=== PATIENT | female | born 1950 | race Hispanic/Latino ===

== ENCOUNTER 2019-01-02 07:54 | Emergency (ER) | payer BC ==
[~2019-01-02 07:54] MED LIST: AEC81 PO; BENA40TA9 PO; CARV12.511 PO; DAPA10TA PO; GABA-529 PO; HYDR25TA PO; LIRA0.6P2 SQ; METF-444 PO; Nitroglycerin SL; SIMV20TA6 PO
[2019-01-02] MEDS ORDERED: KETOROLAC TROMETHAMINE 60 MG/2 ML VIAL ONE (08:21)
[2019-01-02] MEDS ORDERED: ONDANSETRON ODT 4 MG TAB ONE (08:22)
[2019-01-02] MEDS ORDERED: TRAMADOL HCL 50 MG TABLET ONE (08:22)
== END 2019-01-02 08:44 | disposition home or self-care (01) ==
LOC: EDH 07:54
DX: M54.5 Low back pain (principal); I10 Essential (primary) hypertension; E11.9 Type 2 diabetes mellitus without complications; I25.10 Atherosclerotic heart disease of native coronary artery without angina pectoris; Z88.6 Allergy status to analgesic agent
CPT/HCPCS: 96372; 99284; J1885

== ENCOUNTER → 2019-04-06 | Outpatient (CLI) | payer BC | END | disposition home or self-care (01) | LOC: RAH 10:53 | PROVIDERS: ATTEND Internal Medicine | DX: Z12.31 Encounter for screening mammogram for malignant neoplasm of breast (principal) | CPT/HCPCS: 77067 ==

== ENCOUNTER → 2019-04-26 | Outpatient (CLI) | payer BC | END | disposition home or self-care (01) | LOC: RAH 12:36 | PROVIDERS: ATTEND Internal Medicine | DX: N63.11 Unspecified lump in the right breast, upper outer quadrant (principal); N63.20 Unspecified lump in the left breast, unspecified quadrant | CPT/HCPCS: 76641; 77066 ==

== ENCOUNTER → 2019-05-25 | Outpatient (CLI) | payer BC ==
[2019-05-25 09:04] LABS: INR 1.03 (0.85-1.15); PARTIAL THROMBOPLASTIN TIME 27.6 SEC (26.3-35.5); PROTHROMBIN TIME 10.8 SEC (9.6-11.6)
--- NOTE | 2019-05-25 09:30 | NUR ---
U/S GD BX BILATERAL BREAST LUMPS PROCEDURE PERFORMED BY DR NOEL. PUNCTURE SITE RIGHT BREAST 12 OCLOCK AND PATIENT TOLERATED PROCEDURE WELL. SPECIMEN X 3 COLLECTED AND SENT TO LAB. PUNCTURE SITE LEFT SUBAREOLAR AREA. PATIENT TOLERATED WELL. SPECIMENS X 3 COLLECTED ANS SENT TO LAB. END OF PROCEDURE AT 1010. BIOPSY NEEDLE REMOVED AND DRESSING APPLIED. NO BLEEDING NOTED. DISCHARGE INSTRUCTIONS GIVEN TO PATIENT AND VERBALIZED UNDERSTANDING. DISCHARGED AMBULATORY, STABLE, AAO X3 WITH NO C/O PAIN.
== END ==
LOC: RAH 08:17
PROVIDERS: ATTEND Internal Medicine
DX: C50.811 Malignant neoplasm of overlapping sites of right female breast (principal); C50.812 Malignant neoplasm of overlapping sites of left female breast; N18.1 Chronic kidney disease, stage 1; I13.10 Hypertensive heart and chronic kidney disease without heart failure, with stage 1 through stage 4 chronic kidney disease, or unspecified chronic kidney disease; M81.0 Age-related osteoporosis without current pathological fracture; E78.2 Mixed hyperlipidemia; E11.51 Type 2 diabetes mellitus with diabetic peripheral angiopathy without gangrene; E11.22 Type 2 diabetes mellitus with diabetic chronic kidney disease; I48.0 Paroxysmal atrial fibrillation; I25.10 Atherosclerotic heart disease of native coronary artery without angina pectoris; F32.9 Major depressive disorder, single episode, unspecified; F41.9 Anxiety disorder, unspecified; Z88.5 Allergy status to narcotic agent; Z88.8 Allergy status to other drugs, medicaments and biological substances; Z79.84 Long term (current) use of oral hypoglycemic drugs; Z79.899 Other long term (current) drug therapy; Z98.890 Other specified postprocedural states; Z95.818 Presence of other cardiac implants and grafts; Z90.49 Acquired absence of other specified parts of digestive tract; Z90.710 Acquired absence of both cervix and uterus; Z82.49 Family history of ischemic heart disease and other diseases of the circulatory system; Z83.3 Family history of diabetes mellitus
CPT/HCPCS: 19083; 19084; 36415; 85610; 85730; 88305; A4215 ×3; 76942

== ENCOUNTER → 2019-08-01 | Outpatient (CLI) | payer BC ==
[~2019-08-01] MED LIST changes: +ATOR40TA69 PO; +FOLIC ACID PO
== END | disposition home or self-care (01) ==
LOC: RAH 08:42
PROVIDERS: ATTEND Internal Medicine Medical Oncology
DX: Z51.11 Encounter for antineoplastic chemotherapy (principal); I51.7 Cardiomegaly
CPT/HCPCS: 93306

== ENCOUNTER 2019-08-03 08:20 | Day surgery (SDC) | payer BC ==
[2019-08-01 09:45] VITALS: BP 161/70
[2019-08-01 10:41] LABS: HEMATOCRIT 44.6 % (36-48); MEAN CORPUSCULAR HEMOGLOBIN 33.7 pg (27.0-33.0); MEAN CORPUSCULAR HGB CONC 34.1 g/dL (32.0-36.0); MEAN CORPUSCULAR VOLUME 98.9 fL (79-99); PLATELET COUNT (AUTO) 83 K/uL (130-400); RED BLOOD CELL COUNT(AUTO) 4.51 MIL/uL (4.00-5.50); RED CELL DISTRIBUTION WIDTH 14.1 % (11.0-15.5)
[2019-08-01 10:50] LABS: INR 1.06 (0.85-1.15); PARTIAL THROMBOPLASTIN TIME 26.9 SEC (26.3-35.5); PROTHROMBIN TIME 11.1 SEC (9.6-11.6)
[2019-08-01 10:56] LABS: CREATININE 0.8 mg/dL (0.5-1.5); POTASSIUM 4.2 mmol/L (3.5-5.1)
[2019-08-01 10:59] LABS: BAND NEUTROPHILS % (MANUAL) 1 % (0-2); BASOPHILS % (MANUAL) 3 % (0-2); EOSINOPHILS % (MANUAL) 2 % (1-6); LYMPHOCYTES % (MANUAL) 51 % (22-44); MAN.DIFF COMMENT-IMPRESSION MANUAL DIFFERENTIAL; MONOCYTES % (MANUAL) 5 % (2-9); PLATELET MORPHOLOGY COMMENT DECREASED; SEGMENTED NEUTROPHILS % 38 % (40-70)
--- NOTE | 2019-08-02 15:40 | NUR ---
CALLED DOCTOR JIA SANTAMARIA OFFICE TO REPORT PLT OF 83, SPOKE TO ROCIO YAÑEZ RN AND SHE ASKED TO FAXED LABS OVERS, SENT OVER CBC AND BMP , PER JUAN YAÑEZ RN NO NEW ORDERS PER MD OKAY TO PROCEED.
[~2019-08-03] VITALS: Ht 157.5 cm; Wt 95.3 kg
[~2019-08-03 08:20] MED LIST changes: -ATOR40TA69 PO; -FOLIC ACID PO
[2019-08-03 08:40] VITALS: BP 157/69
[2019-08-03] MEDS ORDERED: ATOR40TA69 PO (09:18)
[2019-08-03] MEDS ORDERED: FOLIC ACID PO (09:18)
[2019-08-03] MEDS ORDERED: SODIUM CHLORIDE 0.9% 1000ML 1,000 ML IV ONE (09:27)
[2019-08-03] MEDS ORDERED: LIDOCAINE HCL 1% MDV 50ML VIAL ONE (09:31)
[2019-08-03] MEDS ORDERED: SODIUM BICARB 50MEQ 50ML VIAL ONE (09:31)
[2019-08-03] MEDS ORDERED: ONDANSETRON HCL 4 MG/2 ML VIAL ONE (09:43)
[2019-08-03] MEDS ORDERED: MEPERIDINE-PF 25 MG/ML SYG ONE (09:43)
[2019-08-03] MEDS ORDERED: MIDAZOLAM HCL 1 MG/ML 2ML VIAL ONE (09:43)
[2019-08-03] MEDS ORDERED: LIDOCAINE 1%-EPI 1:100,000 20 ML VIAL IJ ONE (09:51)
[2019-08-03] MEDS ORDERED: OCTYL 2-CYANOACRYLATE 1 EACH TP ONE (10:30)
[2019-08-03 11:25] VITALS: BP 126/46
[2019-08-03 11:40] VITALS: BP 126/46
[2019-08-03 11:55] VITALS: BP 115/48
[2019-08-03 12:10] VITALS: BP 123/57
[2019-08-03 12:25] VITALS: BP 126/67
== END 2019-08-03 12:35 | disposition home or self-care (01) ==
LOC: DAH 08:20
PROVIDERS: ATTEND Internal Medicine Medical Oncology
DX: C50.919 Malignant neoplasm of unspecified site of unspecified female breast (principal); I48.91 Unspecified atrial fibrillation; I25.10 Atherosclerotic heart disease of native coronary artery without angina pectoris; I10 Essential (primary) hypertension; E78.5 Hyperlipidemia, unspecified; F41.9 Anxiety disorder, unspecified; E66.9 Obesity, unspecified; E11.40 Type 2 diabetes mellitus with diabetic neuropathy, unspecified; F32.9 Major depressive disorder, single episode, unspecified; Z88.5 Allergy status to narcotic agent; Z88.8 Allergy status to other drugs, medicaments and biological substances; Z90.710 Acquired absence of both cervix and uterus; Z68.38 Body mass index [BMI] 38.0-38.9, adult; Z90.49 Acquired absence of other specified parts of digestive tract; Z98.890 Other specified postprocedural states; Z79.82 Long term (current) use of aspirin; Z79.899 Other long term (current) drug therapy; Z79.84 Long term (current) use of oral hypoglycemic drugs; Z80.49 Family history of malignant neoplasm of other genital organs; Z82.49 Family history of ischemic heart disease and other diseases of the circulatory system; Z83.3 Family history of diabetes mellitus
CPT/HCPCS: 36415; 36561; 77001; 80048; 82948; 85025; 85610; 85730; A4215; A4221; A4222; A4223; A4606; A4663; C1788; C1894; J1644 ×2; J2175; J2250; J2405; J3490 ×2; J7030; 99156; 99157

== ENCOUNTER 2019-08-20 13:37 | Emergency (ER) | payer BC, MEDICARE ==
[~2019-08-20 13:37] MED LIST changes: +ATOR40TA69 PO; -DAPA10TA PO; +FOLIC ACID PO; -GABA-529 PO; -LIRA0.6P2 SQ; -Nitroglycerin SL; -SIMV20TA6 PO
[2019-08-20] MEDS ORDERED: SODIUM CHLORIDE 0.9% 1000ML 1,000 ML IV ONE (14:08)
[2019-08-20 14:14] LABS: EOSINOPHILS % (AUTO) 0.5 % (0.0-8.0); HEMATOCRIT 44.1 % (36-48); LYMPHOCYTES % (AUTO) 24.1 % (21.0-51.0); MEAN CORPUSCULAR HEMOGLOBIN 33.8 pg (27.0-33.0); MEAN CORPUSCULAR HGB CONC 34.7 g/dL (32.0-36.0); MEAN CORPUSCULAR VOLUME 97.4 fL (79-99); MONOCYTES % (AUTO) 0.5 % (3.0-13.0); NEUTROPHILS % (AUTO) 73.9 % (40.0-77.0); NUCLEATED RED BLOOD CELLS 0.1 % (0.0-0.19); PLATELET COUNT (AUTO) 66 K/uL (130-400); RED BLOOD CELL COUNT(AUTO) 4.53 MIL/uL (4.00-5.50); RED CELL DISTRIBUTION WIDTH 12.9 % (11.0-15.5); WHITE BLOOD COUNT (AUTO) 12.4 K/uL (4.8-10.8)
[2019-08-20 14:30] LABS: INR 1.08 (0.85-1.15); PARTIAL THROMBOPLASTIN TIME 25.7 SEC (26.3-35.5); PROTHROMBIN TIME 11.3 SEC (9.6-11.6)
[2019-08-20 14:31] LABS: CARBON DIOXIDE 27 mmol/L (21-32); CHLORIDE 102 mmol/L (101-111); CREATININE 0.9 mg/dL (0.5-1.5); GLOMERULAR FILTR. RATE CALC 66 mL/min (>60); GLUCOSE,RANDOM 162 mg/dL (70-105); POTASSIUM 3.4 mmol/L (3.5-5.1); SODIUM SERUM 139 mmol/L (136-145); UREA NITROGEN, BLOOD 21 mg/dL (7-18)
[2019-08-20 14:44] LABS: ALANINE AMINOTRANSFERASE 100 U/L (12-78); ALBUMIN 3.3 g/dL (3.5-5.0); ASPARTATE AMINOTRANSFERASE 96 U/L (10-37); BILIRUBIN,TOTAL 1.2 mg/dL (0.2-1.0); CREATINE KINASE, TOTAL 102 U/L (21-232); MYOGLOBIN 102 ng/mL (10-92); TOTAL PROTEIN, SERUM 6.7 g/dL (6.0-8.3); TROPONIN I < 0.04 ng/mL (0.00-0.06)
[2019-08-20 15:40] LABS: APPEARANCE,URINE Cloudy (CLEAR); BILIRUBIN,URINE Negative (NEGATIVE); COLOR,URINE Yellow (YELLOW); GLUCOSE, URINE (UA) Negative (NEGATIVE); KETONES,URINE Negative (NEGATIVE); LEUKOCYTE ESTERASE ,URINE Moderate (NEGATIVE); NITRATE,URINE Positive (NEGATIVE); OCCULT BLOOD,URINE Large (NEGATIVE); PH,URINE 5.5 (5.0-8.0); PROTEIN,URINE Trace mg/dL (NEGATIVE)
[2019-08-20] MEDS ORDERED: CEFTRIAXONE SODIUM 1 GM ONE (16:23)
[2019-08-20 16:26] LABS: BACTERIA,URINE Many /HPF (None Seen)
== END 2019-08-20 16:37 | disposition home or self-care (01) ==
LOC: EDH 13:37
DX: E86.9 Volume depletion, unspecified (principal); N39.0 Urinary tract infection, site not specified; C50.919 Malignant neoplasm of unspecified site of unspecified female breast; I10 Essential (primary) hypertension; E11.9 Type 2 diabetes mellitus without complications; I25.10 Atherosclerotic heart disease of native coronary artery without angina pectoris; Z90.710 Acquired absence of both cervix and uterus; Z88.5 Allergy status to narcotic agent
CPT/HCPCS: 36415; 71045; 80053; 81001; 82550; 83605; 83874; 84145; 84484; 85025; 85610; 85730; 87040 ×2; 87077; 87088; 87186; 93005; 96361; 96374; 99291; J0696; J7030